=== PATIENT | female | born 1975 | race African-American/Black ===

== ENCOUNTER 2017-09-18 11:08 | Emergency (ER) | payer BC, OTHER ==
--- NOTE | 2017-09-18 12:47 | ER Document Report ---
ED General - General Chief Complaint: Leg Pain Stated Complaint: POSSIBLE BLOOD CLOT Time Seen by Provider: 09/18/17 12:39 Notes: Patient is complaining of "blood clots" in her right lower leg. She is referring to a couple of moderate-sized bruises of the anterior mid mcmullen region of the right leg which have been present for 2 weeks or more. They are tender to touch. She also has 1 round moderate size bruise of the posterior aspect of the left upper arm. [facility] because she is also experiencing headache, dizziness, and blurred vision and was noted to have an elevated blood pressure of 190/120. Patient has no history of high blood pressure is not on any medicines for blood pressure. Patient has not had any kind of injury or trauma to her limbs that would cause her to have bruising. She has a history of anemia and is on iron 3 times a day. Her last menstrual cycle started in early July and lasted for over 30 days, ending last week. That is unusual for her. Also takes medication for insomnia. TRAVEL OUTSIDE OF THE [place] IN LAST 30 DAYS: No - Related Data Allergies/Adverse Reactions: acetaminophen [From Percocet] Allergy (Verified 09/18/17 12:08) oxycodone [From Percocet] Allergy (Verified 09/18/17 12:08) Home Medications: Current Home Medications No Home Medications 09/18/17 [History] Past Medical History - Social History Smoking Status: Never Smoker Chew tobacco use (# tins/day): No Frequency of alcohol use: None Drug Abuse: None Family History: Reviewed & Not Pertinent Pulmonary Medical History: Denies: Hx Tuberculosis Endocrine Medical History: Reports: Other - Anemia Psychiatric Medical History: Reports: Other - Insomnia Surgical Hx: Negative - Immunizations Hx Diphtheria, Pertussis, Tetanus Vaccination: Yes Review of Systems - Review of Systems Notes: REVIEW OF SYSTEMS: CONSTITUTIONAL : Denies fever. [facility] 120 and again when the patient was triaged here. EENT: Denies eye, ear, nose or mouth or throat pain or other symptoms. CARDIOVASCULAR: Denies chest pain. RESPIRATORY: Denies cough, chest congestion, or shortness of breath. GASTROINTESTINAL: Denies abdominal pain or nausea, vomiting, or diarrhea. GENITOURINARY: Denies difficulty or painful urinating, urinary frequency, blood in urine. MUSCULOSKELETAL: Denies back or neck pain. Denies joint pain or swelling. SKIN: Denies rash or skin lesions. NEUROLOGICAL: Denies LOC or altered mental status. Did complain of a headache along with some dizziness and blurry vision. Denies sensory loss or motor deficits. ALL OTHER SYSTEMS REVIEWED AND NEGATIVE. Physical Exam - Vital signs Vitals: Temp Pulse BP Pulse Ox 98.7 F 71 181/113 H 99 09/18/17 11:33 09/18/17 11:33 09/18/17 11:33 09/18/17 11:33 Interpretation: Hypertensive - 181/113 in triage. No: Tachycardic, Hypoxic, Tachypneic, Febrile - General General appearance: Appears well, Alert - HEENT Head: Normocephalic Eyes: Normal Pharynx: Normal Neck: Normal. No: Anterior cervical chain, Lymphadenopathy - Respiratory Respiratory status: No respiratory distress Chest status: Nontender Breath sounds: Normal. No: Rales, Rhonchi, Wheezing Chest palpation: Normal - Cardiovascular Rhythm: Regular Heart sounds: Normal auscultation Murmur: No - Abdominal Inspection: Normal Bowel sounds: Normal Tenderness: Nontender Organomegaly: No organomegaly - Back Back: Normal, Nontender - Extremities Arm: Ecchymosis - 2 - 3 cm round bruising left mid upper arm posteriorly, tender , not red or inflamed Calf: Ecchymosis - she has a couple of moderate-sized (2 - 3 cm diameter bruises of the anterior mid mcmullen region of the right leg which have been present for 2 weeks or more. They are tender to touch. - Neurological Neuro grossly intact: Yes Course - Re-evaluation Re-evalutation: 09/18/17 20:09 I advised the patient that since her blood pressure was down to a normal value at the time of her discharge, I did not feel that she needs to be started on medications for her blood pressure. I recommended that she have a repeat blood [facility] check [facility]14 days. Certainly, if she develops symptoms or checks her pressure and it is as high as it was earlier again, she should seek more immediate medical evaluation and care. - Vital Signs Vital signs: Temp Pulse Resp BP Pulse Ox 98.7 F 81 18 134/83 H 100 09/18/17 11:33 09/18/17 14:26 09/18/17 14:26 09/18/17 14:26 09/18/17 14:26 - Laboratory Result Diagrams: 09/18/17 12:20 09/18/17 12:20 Laboratory results interpreted by me: 09/18/17 09/18/17 09/18/17 12:20 12:20 12:20 RDW 15.0 H APTT 37.6 H BUN 6 L - Diagnostic Test Radiology reviewed: Image reviewed, Reports reviewed - Venous Doppler shows no evidence of deep venous thrombosis, only superficial bruises. Discharge - Discharge Clinical Impression: Superficial bruising, Borderline hypertension Condition: Stable Disposition: HOME, SELF-CARE Additional Instructions: HIGH BLOOD PRESSURE, NOT TREAT: When your blood pressure was taken today it was elevated. Today's reading was . We do not think you need to have your blood pressure treated today. Sometimes, stress or illness causes a temporary elevation of your blood pressure. We suggest that you get your blood pressure measured again during the next few days to see if this elevated blood pressure is more than a temporary abnormality. If your blood pressure is greater than 150/90 on each occasion, you must have treatment. Some simple things you can do to help are: If you have blood pressure medicine but aren't using it regularly, start taking it again. Get some aerobic exercise for at least 20 minutes on a daily basis. (See your doctor before beginning a new exercise program.) Eat a low-fat diet. Lose excess weight. Avoid salty foods and avoid adding salt to any of the foods you eat. Avoid diet pills, decongestants, "energizing" herbs, and other medicines that elevate blood pressure. If left untreated, hypertension greatly enhances your risk for developing heart disease and strokes. Please don't ignore this problem. You have what appear to be superficial bruises of the right lower leg and back of the left arm. These are not deep venous clots that are dangerous. FOLLOW-UP CARE: If you have been referred to a physician for follow-up care, call the physician s office for an appointment as you were instructed or within the next two days. If you experience worsening or a significant change in your symptoms, notify the physician immediately or return to the Emergency Department at any time for re-evaluation. Have your blood pressure rechecked at the [facility] in 10-14 days unless you have a change in your condition or your blood pressure goes back up high. Forms: Return to Work
[2017-09-18 12:51] LABS: PROTHROMBIN TIME 13.4 SEC (11.4-15.4)
[2017-09-18 12:52] LABS: ABSOLUTE BASOPHILS # (AUTO) 0.1 10^3/uL (0.0-0.2); ABSOLUTE EOSINOPHILS # (AUTO) 0.1 10^3/uL (0.0-0.6); ABSOLUTE LYMPHOCYTES (AUTO) 1.8 10^3/uL (0.5-4.7); ABSOLUTE MONOCYTES (AUTO) 0.4 10^3/uL (0.1-1.4); ABSOLUTE NEUT (AUTO) 2.3 10^3/uL (1.7-8.2); BASOPHILS % (AUTO) 1.1 % (0-2); HEMATOCRIT 36.1 % (36.0-47.0); HEMOGLOBIN 12.1 g/dL (12.0-15.5); HGB HCT DIFFERENCE 0.2; LYMPHOCYTES % (AUTO) 38.7 % (13-45); MEAN CORPUSCULAR HGB CONC 33.6 g/dL (32.0-36.0); MEAN CORPUSCULAR VOLUME 87 fl (80-97); MONOCYTES % (AUTO) 7.7 % (3-13); PARTIAL THROMBOPLASTIN TIME 37.6 SEC (23.5-35.8); RED BLOOD COUNT 4.17 10^6/uL (3.72-5.28); SEGMENTED NEUTROPHILS % (AUTO) 50.5 % (42-78); WHITE BLOOD COUNT 4.6 10^3/uL (4.0-10.5)
[2017-09-18 13:02] LABS: ALANINE AMINOTRANSFERASE 23 U/L (9-52); ALBUMIN 4.4 g/dL (3.5-5.0); ALKALINE PHOSPHATASE 59 U/L (38-126); ANION GAP 11 (5-19); ASPARTATE AMINO TRANSFERASE 23 U/L (14-36); BILIRUBIN,DIRECT 0.3 mg/dL (0.0-0.4); BILIRUBIN,TOTAL 0.5 mg/dL (0.2-1.3); BLOOD UREA NITROGEN 6 mg/dL (7-20); CALCIUM 9.2 mg/dL (8.4-10.2); CARBON DIOXIDE 27 mmol/L (22-30); CHLORIDE 105 mmol/L (98-107); CREATININE RESULT 0.81 mg/dL (0.52-1.25); GLUCOSE 86 mg/dL (75-110); POTASSIUM 3.9 mmol/L (3.6-5.0); SODIUM 142.9 mmol/L (137-145); TOTAL PROTEIN 8.1 g/dL (6.3-8.2)
[2017-09-18 13:34] LABS: APPEARANCE,URINE CLEAR; BILIRUBIN,URINE NEGATIVE (NEGATIVE); GLUCOSE, URINE NEGATIVE (NEGATIVE); KETONES,URINE NEGATIVE (NEGATIVE); LEUKOCYTE ESTERASE,URINE NEGATIVE (NEGATIVE); NITRITE,URINE NEGATIVE (NEGATIVE); PROTEIN,URINE NEGATIVE (NEGATIVE); URINE SPECIFIC GRAVITY 1.005; UROBILINOGEN,URINE NEGATIVE mg/dL (<2.0)
[2017-09-18 14:27] VITALS: BP 134/83
--- NOTE | 2017-09-18 15:32 | XCELERA REPORT ---
[address] [address] Lower Extremity Venous Evaluation Name: AISHA GOMEZ Age: 41 yrs Gender: Female : 1975 Patient Status: Emergency Patient Location: ER Study Date: 09/18/2017 01:18 PM Procedure: Color flow and duplex imaging of the veins of the right lower extremity as well as the left Common Femoral vein. Reason For Study: Right leg bruising and pain Ordering Physician: ORAL OLIVIER Performed By: Nadya Preston Right Sided Venous Evaluation Normal vessel filling wall to wall, compression and augmentation as well as Colour flow down to the infrageniculate veins. Left Sided Venous Evaluation The left common femoral vein is fully compressible. Spontaneous and phasic flow is present in the left common femoral vein. Interpretation Summary No duplex evidence of DVT or obstruction in the right lower extremity nor in the left Common Femoral vein. : ORAL OLIVIER > Cortes Benson
== END 2017-09-18 14:36 | disposition home or self-care (01) ==
LOC: ER 11:08
DX: R58 Hemorrhage, not elsewhere classified (principal); R03.0 Elevated blood-pressure reading, without diagnosis of hypertension; D64.9 Anemia, unspecified; Z79.899 Other long term (current) drug therapy; R51 Headache; R42 Dizziness and giddiness; H53.8 Other visual disturbances; Z88.5 Allergy status to narcotic agent
CPT/HCPCS: 36415; 80053; 81001; 84703; 85025; 85610; 85730; 93971; 99283